=== PATIENT | male | born 1955 | race Caucasian/White ===

== ENCOUNTER 2016-06-27 17:40 | Inpatient (IN) | payer MEDICARE, MEDICAID ==
[~2016-06-27] VITALS: Ht 182.9 cm; Wt 67.4 kg
[~2016-06-27 17:40] MED LIST: ALBU8HFA4 IH; ATEN25 PO; DIVA500T69 PO; OMEP20 PO; QUET50TA PO; THERAGRAN M1 TA1 PO
[2016-06-27] MEDS ORDERED: DiphenhydrAMINE HCL 50 MG/ML VIAL IM ONE (18:45)
[2016-06-27] MEDS ORDERED: HALOPERIDOL LACTATE 5 MG/ML VIAL IM ONE (18:45)
[2016-06-27] MEDS ORDERED: LORazepam 2 MG/ML VIAL IM ONE (18:45)
[2016-06-27 18:58] LABS: BASOPHILS % (AUTO) 0.4 % (0.0-2.0); EOSINOPHILS % (AUTO) 0.2 % (1.0-6.0); HEMATOCRIT 36.4 % (41-53); HEMOGLOBIN 12.1 g/dL (13.5-17.5); LYMPHOCYTES # (AUTO) 1.4 K/uL (1.0-4.8); LYMPHOCYTES % (AUTO) 11.4 % (22.0-44.0); MEAN CORPUSCULAR HEMOGLOBIN 29.3 pg (26.0-34.0); MEAN CORPUSCULAR HGB CONC 33.2 G/dL (31.0-37.0); MEAN CORPUSCULAR VOLUME 88 fL (80-100); MONOCYTES # (AUTO) 1.4 K/uL (0.1-1.0); MONOCYTES % (AUTO) 11.4 % (2.0-9.0); NEUTROPHILS # (AUTO) 9.4 K/uL (1.8-7.7); NEUTROPHILS % (AUTO) 76.6 % (40.0-70.0); PLATELET COUNT (AUTO) 278 K/uL (150-450); RED BLOOD CELL COUNT(AUTO) 4.13 MIL/uL (4.50-5.90); RED CELL DISTRIBUTION WIDTH 16.5 % (11.5-14.5); WHITE BLOOD COUNT (AUTO) 12.3 K/uL (4.5-11.0)
[2016-06-27 19:10] LABS: ANION GAP 15 mmol/L (8-16); CALCIUM, TOTAL 8.1 mg/dL (8.8-10.5); CARBON DIOXIDE 20 mmol/L (22-29); CHLORIDE 104 mmol/L (98-107); CREATININE 1.17 mg/dL (0.60-1.30); GLOMERULAR FILTR. RATE CALC > 60 mL/min (>60); POTASSIUM 4.4 mmol/L (3.5-5.1); SODIUM SERUM 139 mmol/L (136-145); UREA NITROGEN, BLOOD 32 mg/dL (7-18)
[2016-06-27 19:17] LABS: ALANINE AMINOTRANSFERASE 53 U/L (12-78); ALBUMIN 3.1 g/dL (3.4-5.0); ASPARTATE AMINOTRANSFERASE 64 U/L (15-37); BILIRUBIN,TOTAL 0.5 mg/dL (0.1-1.0); TOTAL PROTEIN, SERUM 7.5 g/dL (6.4-8.2)
[2016-06-27 20:56] LABS: SALICYLATE < 2.8 mg/dL (2.8-20.0)
[2016-06-27 21:31] LABS: ACETAMINOPHEN < 2 mcg/mL (10-30); THYROID STIMULATING HORMONE < 0.01 uIU/mL (0.36-3.74); VALPROIC ACID < 3 mcg/mL (50-100)
[2016-06-27] MEDS ORDERED: HALOPERIDOL 5 MG TABLET PO PRN (23:00)
[2016-06-27] MEDS ORDERED: LORazepam 2 MG TABLET PO PRN (23:00)
[2016-06-27 23:08] VITALS: BP 125/82
[2016-06-28 02:42] VITALS: BP 112/65
[2016-06-28] MEDS ORDERED: INFLUENZA VIRUS VACCINE QVS 2016-17 (3YR+)/PF 60 MCG/0.5 ML SYRINGE IM ONE (03:15)
[2016-06-28 03:59] LABS: APPEARANCE,URINE CLEAR (CLEAR); GLUCOSE, URINE (UA) NEGATIVE (NEGATIVE); KETONES,URINE NEGATIVE (NEGATIVE); LEUKOCYTE ESTERASE ,URINE NEGATIVE (NEGATIVE); OCCULT BLOOD,URINE NEGATIVE (NEGATIVE); PROTEIN,URINE NEGATIVE (NEGATIVE)
[2016-06-28 04:01] LABS: ADD UA MICROSCOPIC NO
[2016-06-28] MEDS ORDERED: ONDANSETRON HCL 4 MG TABLET PO PRN (08:15)
[2016-06-28] MEDS ORDERED: BENZOCAINE/MENTHOL LOZENGE [8 LOZENGES/PACKET] MM PRN (08:15)
[2016-06-28] MEDS ORDERED: PETROLATUM,WHITE 71 GM JELLY TP PRN (08:15)
[2016-06-28] MEDS ORDERED: IBUPROFEN 600 MG TABLET PO PRN (08:15)
[2016-06-28] MEDS ORDERED: MAG HYDROX/AL HYDROX/SIMETH ES 30 ML SUSPENSION UDCUP PO PRN (08:15)
[2016-06-28] MEDS ORDERED: CloNIDine HCL 0.1 MG TABLET PO PRN (08:15)
[2016-06-28] MEDS ORDERED: ALBUTEROL SULFATE HFA 90 MCG/PUFF 8 GM INHALER IH PRN (08:15)
[2016-06-28] MEDS ORDERED: LOPERAMIDE HCL 2 MG CAPSULE PO PRN (08:15)
[2016-06-28] MEDS ORDERED: BACITRACIN 28.4 GM OINTMENT TP PRN (08:15)
[2016-06-28] MEDS ORDERED: MAGNESIUM HYDROXIDE SUSPENSION 30 ML UDCUP PO PRN (08:15)
[2016-06-28] MEDS ORDERED: ACETAMINOPHEN 325 MG TABLET PO PRN (08:15)
[2016-06-28] MEDS: QUEtiapine FUMARATE 100 MG TABLET PO SCH ×2 (08:30→16:33)
[2016-06-28] MEDS: ATENOLOL 25 MG TABLET PO SCH (11:43)
[2016-06-28 13:27] VITALS: BP 111/61
[2016-06-28 18:50] VITALS: BP 119/76
[2016-06-28] MEDS: DIVALPROEX SODIUM 500 MG ER TABLET PO SCH (21:26)
[2016-06-29] MEDS ORDERED: -PHARMACY VACCINE NOTE- MISC ONE ×2 (04:15)
[2016-06-29] MEDS: ATENOLOL 25 MG TABLET PO SCH (08:19)
[2016-06-29] MEDS: QUEtiapine FUMARATE 100 MG TABLET PO SCH ×2 (08:19→16:09)
[2016-06-29 10:21] VITALS: BP 119/73
[2016-06-29 16:12] VITALS: BP 113/77
[2016-06-29] MEDS: DIVALPROEX SODIUM 500 MG ER TABLET PO SCH (20:02)
[2016-06-29] MEDS: ZOLPIDEM TARTRATE 10 MG TABLET PO PRN (20:54)
[2016-06-30] MEDS: QUEtiapine FUMARATE 100 MG TABLET PO SCH ×2 (08:07→18:14)
[2016-06-30] MEDS: ATENOLOL 25 MG TABLET PO SCH (08:07)
[2016-06-30 09:21] VITALS: BP 118/75
[2016-06-30] MEDS: DIVALPROEX SODIUM 500 MG ER TABLET PO SCH (21:49)
[2016-07-01 06:45] VITALS: BP 126/74
[2016-07-01 08:55] VITALS: BP 122/73
[2016-07-01] MEDS: ATENOLOL 25 MG TABLET PO SCH (11:15)
[2016-07-01] MEDS: QUEtiapine FUMARATE 100 MG TABLET PO SCH ×2 (11:16→16:39)
[2016-07-01] MEDS: DIVALPROEX SODIUM 500 MG ER TABLET PO SCH (20:28)
[2016-07-01 20:49] VITALS: BP 129/76
[2016-07-01] MEDS: ZOLPIDEM TARTRATE 10 MG TABLET PO PRN (21:22)
[2016-07-02 09:10] VITALS: BP 93/52
[2016-07-02] MEDS: QUEtiapine FUMARATE 100 MG TABLET PO SCH ×2 (10:45→16:27)
[2016-07-02] MEDS: ATENOLOL 25 MG TABLET PO SCH (10:45)
[2016-07-02] MEDS: DIVALPROEX SODIUM 500 MG ER TABLET PO SCH (20:54)
[2016-07-03] MEDS: QUEtiapine FUMARATE 100 MG TABLET PO SCH (08:14)
[2016-07-03] MEDS: ATENOLOL 25 MG TABLET PO SCH (08:14)
[2016-07-03 08:32] VITALS: BP 103/73
[2016-07-03 08:40] VITALS: BP_SYST 103; BP_SYST 116; BP_DIAS 73; BP_DIAS 78
[2016-07-03] MEDS ORDERED: QUET100T PO (11:47)
== END 2016-07-03 12:30 | disposition home or self-care (01) | DRG 885 ==
LOC: EMS 17:42 → 3EC 22:47
DX: F25.0 Schizoaffective disorder, bipolar type (principal); F15.10 Other stimulant abuse, uncomplicated; B18.2 Chronic viral hepatitis C; M19.90 Unspecified osteoarthritis, unspecified site; K21.9 Gastro-esophageal reflux disease without esophagitis; J44.9 Chronic obstructive pulmonary disease, unspecified; Z96.642 Presence of left artificial hip joint; K59.00 Constipation, unspecified; E05.90 Thyrotoxicosis, unspecified without thyrotoxic crisis or storm; X58.XXXA Exposure to other specified factors, initial encounter; I10 Essential (primary) hypertension; F10.10 Alcohol abuse, uncomplicated; F17.200 Nicotine dependence, unspecified, uncomplicated; Z59.0 Homelessness; Z71.6 Tobacco abuse counseling; Z71.41 Alcohol abuse counseling and surveillance of alcoholic; Z79.899 Other long term (current) drug therapy; Z91.83 Wandering in diseases classified elsewhere; Y93.89 Activity, other specified; Y92.89 Other specified places as the place of occurrence of the external cause; Y99.8 Other external cause status; S81.802A Unspecified open wound, left lower leg, initial encounter
CPT/HCPCS: 84436; 84439; 84443; 84481; 96372; 99285; G0480; G0481; J1200; J1630; J2060